=== PATIENT | female | born 1935 | race Caucasian/White ===

== ENCOUNTER → 2019-02-17 | Day surgery (SDC) | payer MEDICARE, BC ==
[~2019-02-17] MED LIST: Propofol 200 MG/20 ML SDV ONE
--- NOTE | 2019-02-17 18:43 | EDM.PDOC ---
ED HPI GENERAL MEDICAL PROBLEM - General Chief Complaint: ENT Problem Stated Complaint: TOOTHPICK IN HER THROAT Time Seen by Provider: 02/17/19 18:15 Source of Information: Reports: Patient, Family History Limitations: Reports: No Limitations - History of Present Illness INITIAL COMMENTS - FREE TEXT/NARRATIVE: 83-year-old female who is eating in order for the toothpick within the last hour and a half swallowed half the toothpick without knowing it was there and feels like it is stuck deep in her throat. She is able to swallow but it is tender, no shortness of breath. No bleeding. Onset: Sudden Duration: Hour(s): (Within the last 2 hours) Associated Symptoms: Denies: Nausea/Vomiting, Shortness of Breath - Related Data Allergies Allergy/AdvReac Type Severity Reaction Status Date / Time fentanyl Allergy Cannot Verified 02/17/19 18:24 Remember midazolam HCl [From Versed] Allergy Confusion Verified 02/17/19 18:24 Penicillins Allergy Rash Verified 02/17/19 18:24 propofol [From Diprivan] Allergy Confusion Verified 02/17/19 18:24 Sulfa (Sulfonamide Allergy Cannot Verified 02/17/19 18:24 Antibiotics) Remember thiopental sodium Allergy Nausea and Verified 02/17/19 18:24 [From Pentothal] Vomiting Home Meds: Home Meds Calcium Citrate/Vitamin D3 [Calcium Citrate - Vit D Caplet] 1 tab PO BID [History] Glucosamine Sulfate 1,000 mg PO BID 05/11/15 [History] HCTZ/Triamterene [Maxzide 25-37.5 MG] 1 tab PO DAILY 05/11/15 [History] Latanoprost 1 drop TOP BEDTIME 05/11/15 [History] Levothyroxine Sodium [Synthroid] 112 mcg PO DAILY 05/11/15 [History] Loteprednol [Lotemax 0.5% Ophth Soln] 1 drop TOP QID 05/11/15 [History] Magnesium Hydroxide [Brooks' Milk of Magnesia] 800 mg PO DAILY 05/11/15 [ History] Multivitamin-Min/Iron/FA/Vit K [Multi-Day Plus Minerals Tablet] 1 tab PO BID [History] [place]-3 Fatty Acids [Fish Oil] 1,360 mg PO DAILY 05/11/15 [History] Simvastatin 1 tab PO BEDTIME 05/11/15 [History] Warfarin [Coumadin] 5 mg PO DAILY 06/02/15 [History] Past Medical History HEENT History: Reports: Hard of Hearing, Impaired Vision, Other (See Below) Other HEENT History: Macular degeneration Cardiovascular History: Reports: Afib, High Cholesterol, Hypertension Gastrointestinal History: Reports: Other (See Below) Other Gastrointestinal History: 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: Musculoskeletal History: Reports: Fracture Other Musculoskeletal History: r wrist Endocrine/Metabolic History: Reports: Hypothyroidism Hematologic History: Reports: Blood Transfusion(s) - Infectious Disease History Infectious Disease History: Reports: Chicken Pox, Measles, Mumps - Past Surgical History GI Surgical History: Reports: Colonoscopy, Other (See Below) Female Surgical History: Reports: Hysterectomy, Oophorectomy, Other (See Below) Social & Family History - Tobacco Use Smoking Status *Q: Never Smoker ED ROS ENT - Review of Systems Review Of Systems: See Below Constitutional: Denies: Fever, Chills HEENT: Reports: Throat Pain, Other (Foreign body sensation) Respiratory: Denies: Shortness of Breath GI/Abdominal: Denies: Nausea, Vomiting Neurological: Reports: No Symptoms ED EXAM, ENT - Physical Exam Exam: See Below Exam Limited By: No Limitations General Appearance: Alert, No Apparent Distress Mouth/Throat: Normal Inspection Head: Atraumatic Respiratory/Chest: No Respiratory Distress, Lungs Clear Course - Vital Signs Last Recorded V/S: Last Vital Signs Temp 97.3 F 02/17/19 19:50 Pulse 57 L 02/17/19 19:50 Resp 17 02/17/19 19:50 BP 131/53 L 02/17/19 19:50 Pulse Ox 95 02/17/19 19:50 - Orders/Labs/Meds Meds: Medications Discontinued Medications Generic Name Dose Route Start Last Admin Trade Name Freq PRN Reason Stop Dose Admin Propofol Confirm 02/17/19 19:16 Diprivan 20 Ml Administered 02/17/19 19:17 Dose 200 mg .ROUTE .STK-MED ONE - Re-Assessments/Exams Free Text/Narrative Re-Assessment/Exam: 02/17/19 18:42 Discussed the patient with Dr. Martin, he kindly agreed to see the patient to discuss a possible EGD to rule out a foreign body. 02/17/19 20:19 Dr. Martin did find some mucosal irritation and a small puncture wound but no foreign body. Patient recovered nicely and will advance diet as tolerated. Departure - Departure Time of Disposition: 20:41 Disposition: Home, Self-Care 01 Clinical Impression: Foreign body of pharynx Qualifiers: Encounter type: initial encounter Qualified Code(s): T17.208A - Unspecified foreign body in pharynx causing other injury, initial encounter - Discharge Information Sepsis Event Note - Evaluation Sepsis Screening Result: No Definite Risk - Focused Exam Vital Signs: Vital Signs Temp Pulse Pulse Resp BP Pulse Ox 02/17/19 19:50 97.3 F 57 L 17 131/53 L 95 02/17/19 19:45 63 16 129/52 L 95 02/17/19 19:40 62 18 127/61 99 02/17/19 19:35 63 22 H 144/61 H 100 02/17/19 19:30 97.2 F 64 18 149/56 H 100 02/17/19 18:31 97.4 F 69 16 178/70 H 94 L 02/17/19 18:21 97.4 F 69 16 178/70 H 94 L Date Exam was Performed: 02/17/19 Time Exam was Performed: 21:30
[2019-02-17 19:51] VITALS: BP 131/53; PULSE 57
--- NOTE | 2019-02-17 20:23 | OR ---
DATE OF PROCEDURE: 02/17/2019 SURGEON: Nadeem Martin MD PROCEDURE PERFORMED: EGD. PREOPERATIVE DIAGNOSIS: EGD for possible foreign body. POSTOPERATIVE DIAGNOSIS: EGD for possible foreign body. COMPLICATION: None. SHOE FOLDER: None. RISKS: Risks, benefits, alternatives, and limitations including, but not limited to, infection, bleeding, injury to esophagus, anesthetic risks, and other risks not listed here were explained to the patient who wished to proceed. PROCEDURE IN DETAIL: Patient was placed in left lateral decubitus position. The EGD scope was introduced and gently advanced. This was advanced into the stomach and the duodenum. There was a large amount essentially a completely full stomach of solid food. No foreign material could be seen; however, this is very unlikely considering the large amount of foreign material. The patient's pain was in the proximal esophagus. This was inspected 3 times and no foreign material was noted. No significant inflammation. However, in the glottis, there was some inflammation, most likely consistent with the area the patient is experiencing. No evidence of perforation or injury. The procedure was terminated. The patient tolerated the procedure well. Nadeem Martin MD /[id number]
== END ==
LOC: JP.ED 18:03 → JP.SDS 18:51
PROVIDERS: ATTEND Surgery
DX: T18.198A Other foreign object in esophagus causing other injury, initial encounter (principal); E78.00 Pure hypercholesterolemia, unspecified; I10 Essential (primary) hypertension; E03.9 Hypothyroidism, unspecified; Z88.5 Allergy status to narcotic agent; Z88.8 Allergy status to other drugs, medicaments and biological substances; Z88.0 Allergy status to penicillin; Z88.2 Allergy status to sulfonamides; Z79.01 Long term (current) use of anticoagulants; Z79.899 Other long term (current) drug therapy
CPT/HCPCS: 99283; J2704

== ENCOUNTER 2020-09-17 07:32 | Day surgery (SDC) | payer MEDICARE, BC ==
[~2020-09-17 07:32] MED LIST changes: +Bupivacaine 0.5% 30 ML SDV ONE; +Midazolam 1 MG/ML 2 ML SDV ONE; +Nozin Nasal Sanitizer NASBOTH ONE; +fentaNYL 100 MCG/2 ML SDV ONE
[2020-09-17] MEDS ORDERED: Lactated Ringers 1,000 ML IV SCH (07:45)
[2020-09-17] MEDS ORDERED: ceFAZolin 1 GM in Premix Bag 1 BAG IV ONE (08:30)
[2020-09-17 10:57] VITALS: BP 133/65; PULSE 65
--- NOTE | 2020-09-17 20:47 | OR ---
DATE OF PROCEDURE: 09/17/2020 SURGEON: José Miguel Lemos MD PREOPERATIVE DIAGNOSIS: Right carpal tunnel syndrome. POSTOPERATIVE DIAGNOSIS: Right carpal tunnel syndrome. PROCEDURE: Release of right carpal tunnel. ANESTHESIA: Tarkio block with sedation. INDICATIONS: Mariana is an 85-year-old female with a history of pain, numbness, and weakness of the right hand. 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 She now presents for carpal tunnel release. Risks, benefits, potential complications were discussed including the possibility that all of the sensation may not return and that the atrophy of the thenar muscle is likely permanent. DESCRIPTION OF PROCEDURE: After adequate anesthesia was obtained, the right arm and hand were prepped and draped in a sterile fashion. A longitudinal incision was made in the palm in line with the interspace between the 3rd and 4th fingers distal to the wrist crease. This was taken through the subcutaneous tissues and palmar fascia. Transverse carpal ligament was identified and divided under direct visualization. Division was carried proximally and distally. This was confirmed both visually and by palpation. The contents of the carpal tunnel were examined, which showed significant compression of the median nerve. Mild tenosynovitis and thickening of the synovium were present. No space-occupying masses or other abnormalities were identified. Wound was then irrigated and closed with 3-0 nylon in interrupted mattress fashion. Skin edges were infiltrated with 0.5% Marcaine and a sterile dressing was applied. The patient tolerated the procedure well. There were no complications. Taken from the operating room in stable condition. José Miguel Lemos MD /[id number]
--- NOTE | 2020-09-22 10:37 | ANES ---
DATE OF SERVICE: 09/17/2020 ADDENDUM: I gave Ms. Mansfield a total of 200 mg propofol for her procedure. Aniceto Alvarado CRNA /[id number]
== END 2020-09-17 11:22 | disposition home or self-care (01) ==
LOC: JP.SDS 07:32
PROVIDERS: ATTEND Specialist
DX: G56.01 Carpal tunnel syndrome, right upper limb (principal); I10 Essential (primary) hypertension; E78.5 Hyperlipidemia, unspecified; E03.9 Hypothyroidism, unspecified; M19.90 Unspecified osteoarthritis, unspecified site; I48.91 Unspecified atrial fibrillation; Z79.899 Other long term (current) drug therapy; Z88.0 Allergy status to penicillin; Z88.2 Allergy status to sulfonamides; Z79.01 Long term (current) use of anticoagulants
CPT/HCPCS: 64721; A9270; J0690; J2704; J3010; J3490; J7120; J2250

== ENCOUNTER 2020-09-20 08:23 | Emergency (ER) | payer MEDICARE, BC ==
[2020-09-20 08:38] VITALS: BP 182/75; PULSE 79
[2020-09-20] MEDS ORDERED: Lidocaine 1% with EPINEPHrine 1:100,000 50 ML MDV SUBCUT STA (09:25)
--- NOTE | 2020-09-20 09:27 | EDM.PDOC ---
ED HPI GENERAL MEDICAL PROBLEM - General Chief Complaint: General Stated Complaint: bleeding form surgery site Time Seen by Provider: 09/20/20 09:13 Source of Information: Reports: Patient, Family, RN Notes Reviewed History Limitations: Reports: No Limitations - History of Present Illness INITIAL COMMENTS - FREE TEXT/NARRATIVE: 85-year-old female presents emergency department today with complaint of bleeding from her operative site she is postop day 3 carpal tunnel release she does take Eliquis as she is taken the medication completely through it did not stop for any period of time. She states she started having bleeding yesterday and has been unable to get it under control it is just a constant ooze - Related Data Allergies Allergy/AdvReac Type Severity Reaction Status Date / Time fentanyl Allergy Cannot Verified 09/20/20 08:50 Remember midazolam [From Versed] Allergy Confusion Verified 09/20/20 08:50 Penicillins Allergy Rash Verified 09/20/20 08:50 Sulfa (Sulfonamide Allergy Cannot Verified 09/20/20 08:50 Antibiotics) Remember midazolam HCl [From Versed] AdvReac Confusion Verified 09/20/20 08:50 propofol [From Diprivan] AdvReac Confusion Verified 09/20/20 08:50 thiopental [From Pentothal] AdvReac Nausea and Verified 09/20/20 08:50 Vomiting thiopental sodium AdvReac Nausea and Verified 09/20/20 08:50 [From Pentothal] Vomiting warfarin [From Coumadin] AdvReac Muscle Verified 09/20/20 08:50 Aches Home Meds: Home Meds Calcium Citrate/Vitamin D3 [Calcium Citrate - Vit D Caplet] 1 tab PO BID 05/11/15 [History] Glucosamine Sulfate 1,000 mg PO BID 05/11/15 [History] HCTZ/Triamterene [Maxzide 25-37.5 MG] 1 tab PO DAILY 05/11/15 [History] Latanoprost 1 drop TOP BEDTIME 05/11/15 [History] Levothyroxine Sodium [Synthroid] 112 mcg PO DAILY 05/11/15 [History] Multivitamin-Min/Iron/FA/Vit K [Multi-Day Plus Minerals Tablet] 1 tab PO BID 05/11/15 [History] [place]-3 Fatty Acids [Fish Oil] 1,360 mg PO DAILY 05/11/15 [History] Simvastatin 20 mg PO BEDTIME 05/11/15 [History] Apixaban [Eliquis] 5 mg PO BID 04/18/20 [History] Metoprolol Tartrate 50 mg PO BID 04/18/20 [History] Acetaminophen [Tylenol Extra Strength] 1,000 mg PO Q6H PRN 05/01/20 [History] Carboxymethylcellulose Sodium [Thera Tears] 1 drop OP ASDIRECTED 05/01/20 [Histo ry] Fluticasone Propionate [Flonase] 2 spray NS DAILY 05/01/20 [History] Acetaminophen 650 mg PO Q6H PRN 09/01/20 [History] Brimonidine Tartrate [Alphagan P] 1 drop EYEBOTH TID 09/17/20 [History] Hydrocodone/Acetaminophen [Hydrocodon-Acetaminophen 5-300] 1 tab PO ASDIRECTED PRN 09/17/20 [History] Timolol Maleate/PF [Timolol Maleate 0.5% Eye Drop] 1 each EYEBOTH DAILY 09/17/20 [History] Past Medical History HEENT History: Reports: Allergic Rhinitis, Hard of Hearing, Impaired Vision, Other (See Below) Other HEENT History: Macular degeneration. right interoccular pressure Cardiovascular History: Reports: Afib, High Cholesterol, Hypertension, Other (See Below) Other Cardiovascular History: mod. aortic insuff, mod mitral regurgitation,left and right atrial enlargement. 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 septic arthritis Endocrine/Metabolic History: Reports: Hypothyroidism Hematologic History: Reports: Blood Transfusion(s), Iron Deficiency - Infectious Disease History Infectious Disease History: Reports: Chicken Pox, Measles, Mumps - Past Surgical History Head Surgeries/Procedures: Reports: None HEENT Surgical History: Reports: Cataract Surgery, Tonsillectomy, Other (See Below) Other HEENT Surgeries/Procedures: xen procedure Cardiovascular Surgical History: Reports: None Respiratory Surgical History: Reports: None GI Surgical History: Reports: Appendectomy, Colonoscopy, Other (See Below) Other GI Surgeries/Procedures: perforated colon Female Surgical History: Reports: Hysterectomy, Oophorectomy, Other (See Below) Other Female Surgeries/Procedures: removal of ovarian cyst Endocrine Surgical History: Reports: None Musculoskeletal Surgical History: Reports: Carpal Tunnel, Knee Replacement Other Musculoskeletal Surgeries/Procedures:: RTKA 2017 Dermatological Surgical History: Reports: None Social & Family History - Caffeine Use Caffeine Use: Reports: Coffee, Tea ED ROS GENERAL - Review of Systems Review Of Systems: See Below Constitutional: Reports: No Symptoms Respiratory: Reports: No Symptoms Cardiovascular: Reports: No Symptoms Skin: Reports: Wound ED EXAM, GENERAL - Physical Exam Exam: See Below Free Text/Narrative:: Examination of the surgical wound it is oozing with bright red blood the sutures are intact radial pulses +2 Course - Vital Signs Last Recorded V/S: Last Vital Signs Temp 97.6 F 09/20/20 08:53 Pulse 79 09/20/20 08:53 Resp 16 09/20/20 08:53 BP 182/75 H 09/20/20 08:53 Pulse Ox 94 L 09/20/20 08:53 - Orders/Labs/Meds Meds: Medications Discontinued Medications Generic Name Dose Route Start Last Admin Trade Name Yessica PRN Reason Stop Dose Admin Lidocaine/Epinephrine 20 ml 09/20/20 09:25 09/20/20 09:53 Lidocaine 1% With Epinephrine 1:100,000 50 Ml Mdv SUBCUT 09/20/20 09:26 20 ml NOW STA Administration Tranexamic Acid 500 mg 09/20/20 09:52 09/20/20 09:59 Tranexamic Acid 1,000 Mg/10 Ml Amp TOP 09/20/20 09:53 500 mg ONETIME ONE Administration Departure - Departure Time of Disposition: 10:02 Disposition: Home, Self-Care 01 Condition: Fair Clinical Impression: Post-op bleeding Qualifiers: Surgical complication system/body Area: subcutaneous tissue Procedure type: non-dermatologic Qualified Code(s): L76.22 - Postprocedural hemorrhage of skin and subcutaneous tissue following other procedure - Discharge Information Referrals: PCP,None [Primary Care Provider] - Forms: ED Department Discharge Additional Instructions: Please leave the pressure dressing on for at least 2 days follow-up with your primary care for further evaluation in 2 to 3 days at which time the dressing can be removed call return to the emergency department worsening of symptoms Sepsis Event Note (ED) - Evaluation Sepsis Screening Result: No Definite Risk - Focused Exam Vital Signs: Vital Signs Temp Pulse Resp BP Pulse Ox 09/20/20 08:53 97.6 F 79 16 182/75 H 94 L 09/20/20 08:37 97.6 F 79 16 182/75 H 94 L - Assessment/Plan Plan: Assessment Acuity = acute Site and laterality = postoperative site bleeding carpal tunnel release right hand Etiology = probably related to Eliquis Manifestations = none Location of injury = Home Lab values = none Plan She is can hold her Eliquis for a couple of days, use combination of lidocaine with epinephrine injected into the site locally and then the wound was dressed with TTX pressure dressing applied, after the lidocaine was used with epinephrine oozing was controlled. She will follow-up with her primary care next week for further evaluation This note was dictated using [employer] voice recognition software please call with any questions on syntax or grammar.
== END 2020-09-20 10:15 | disposition home or self-care (01) ==
LOC: JP.ED 08:23
DX: L76.22 Postprocedural hemorrhage of skin and subcutaneous tissue following other procedure (principal); I10 Essential (primary) hypertension; E78.00 Pure hypercholesterolemia, unspecified; E03.9 Hypothyroidism, unspecified; Z88.0 Allergy status to penicillin; Z88.6 Allergy status to analgesic agent; Z88.4 Allergy status to anesthetic agent; Z88.2 Allergy status to sulfonamides; Z79.899 Other long term (current) drug therapy
CPT/HCPCS: 99284